=== PATIENT | female | born 1940 | race Two or more races ===

== ENCOUNTER 2018-01-07 10:04 | Emergency (ER) | payer OTHER ==
[~2018-01-07] VITALS: Ht 162.6 cm; Wt 75.3 kg
[~2018-01-07 10:04] MED LIST: DICLOFENAC POTA50 MG PO; LOSARTAN-HCTZ1 EAC1; ORPH100T PO; PRILOSEC OTC20 MG
[2018-01-07] MEDS ORDERED: MILLIPRED DP5 M1 (10:18)
== END 2018-01-07 13:56 | disposition home or self-care (01) ==
LOC: ER 10:04
DX: S42.391A Other fracture of shaft of right humerus, initial encounter for closed fracture (principal); W18.39XA Other fall on same level, initial encounter; Y93.89 Activity, other specified; Y92.22 Religious institution as the place of occurrence of the external cause; Y99.8 Other external cause status

== ENCOUNTER 2018-02-13 10:17 | Outpatient (CLI) | payer OTHER ==
[~2018-02-13 10:17] MED LIST changes: +MILLIPRED DP5 M1
== END 2018-02-13 15:50 | disposition home or self-care (01) ==
LOC: TOM 10:17
DX: M25.511 Pain in right shoulder (principal)